=== PATIENT | male | born 1990 | race Caucasian/White ===

== ENCOUNTER 2023-02-22 06:32 | Emergency (ER) | payer OTHER, SELFPAY ==
[2023-02-22 06:43] VITALS: BP 126/84; PULSE 91; RESP 16; TEMP 37; O2SAT 97; BMI 18.4
--- NOTE | 2023-02-22 06:45 | W.ED.DENTAL ---
HPI - Dental/Oral General: Chief complaint: Dental/Oral Stated complaint: left side jaw swollen Time Seen by Provider: 02/22/23 06:41 Source: patient Mode of arrival: ambulatory History of Present Illness: 32-year-old male presents with complaints of swelling to the left mandible that began overnight. Has had problems with dental infections in the past he is scheduled to see a dentist but there is quite a long wait to get in. He states seemed to be fine yesterday and overnight had significant swelling and discomfort. He has been on antibiotics in the past which has improved things. He is not currently on any antibiotics. He is on Suboxone. Denies any difficulty with speech or swallowing or breathing. Onset (ago): hour(s) Duration: constant Severity: moderate Relieving factors: NSAIDs Exacerbating factors: chewing Context: history of dental caries Associated symptoms: Denies ear or mastoid pain, fever(s), gum swelling, odynophagia, sore throat or tongue swelling Treatment prior to arrival: none Review of Systems Const: Denies: fever(s), chills, fatigue or malaise ENMT: Denies: odynophagia or ear or mastoid pain Card: Denies: chest pain, edema, dyspnea on exertion or orthopnea Resp: Denies: dyspnea, productive cough or non-productive cough GI: Denies: abdominal pain, nausea, vomiting, hematemesis, coffee ground emesis, diarrhea, constipation, bloating, hematochezia or melena : Denies: flank pain, dysuria, urinary frequency or urinary urgency Skin/Breast: Denies: rash or pruritus All/Imm: Denies: tongue swelling Physical Exam Const: GENERAL APPEARANCE: cooperative and comfortable ORIENTATION/CONSCIOUSNESS: Yes awake, Yes oriented to person, Yes oriented to place and Yes oriented to time HENMT: COMMON NORMALS: normocephalic, atraumatic and hearing grossly normal bilaterally HEAD & SCALP: normocephalic and atraumatic TEETH & GINGIVA IMAGES: 1. OTHER: 19th tooth is eroded to the gumline with purulent drainage swelling of the gumline palpable swelling externally is exquisitely tender no submandibular space swelling or induration neck is supple without lymphadenopathy Resp: COMMON NORMALS: normal respiratory effort, No retractions, No use of accessory muscles and clear to auscultation bilaterally AUSCULTATION: clear to auscultation bilaterally Cardio: COMMON NORMALS: regular rate, regular rhythm and No murmurs present (Cardio) RATE: regular rate RHYTHM: regular rhythm GI: COMMON NORMALS: Soft to palpation and No hepatosplenomegaly present AUSCULTATION: Yes normoactive bowel sounds PALPATION: Yes Soft to palpation, No Tenderness to palpation present (GI), No Guarding due to palpation present (GI) and Yes No hepatosplenomegaly present Extremity: COMMON NORMALS: normal to inspection, capillary refill normal, no clubbing, cyanosis or edema, no calf tenderness and no pedal edema Neuro: SENSORIUM/ORIENTATION: Yes oriented to person, Yes oriented to place and Yes oriented to time Skin: COMMON NORMALS: no rashes or lesions noted GENERAL SKIN EXAM: no rashes or lesions noted Course Vital Signs: Vital signs: Vital Signs Temperature 98.6 F 02/22/23 06:43 Pulse Rate 91 02/22/23 06:43 Respiratory Rate 16 02/22/23 06:43 Blood Pressure 126/84 02/22/23 06:43 Pulse Oximetry 97 02/22/23 06:43 Oxygen Delivery Me thod Room Air 02/22/23 06:43 MDM - Dental/Oral Medical Decision Making Dental caries with likely developing abscess. At this point tolerating relatively well no identifiable fluctuant area to drain. Discharged on Augmentin 875 twice daily follow-up with dentist as soon as able. Medical Records I reviewed the patient's medical records. Lab Data I reviewed the patient's lab results. Discharge Plan Discharge Patient Disposition: Home Clinical Impression: Dental abscess Condition: Stable Prescriptions: New amoxicillin-pot clavulanate 875-125 mg tablet 1 tab PO BID Qty: 20 0RF diclofenac sodium 75 mg tablet,delayed release (DR/EC) 75 mg PO Q12H PRN (Reason: pain) Qty: 20 0RF Discontinued amoxicillin-pot clavulanate 875-125 mg tablet 1 tab PO BID 7 Days Qty: 14 0RF No Action buprenorphine-naloxone 8-2 mg tablet, sublingual 1 tab sublingual DAILY buprenorphine HCl 8 mg tablet, sublingual SUBLINGUAL Discharge Orders: Discharge ED (Routine); Ordered 02/22/23 Ordered By: Mike Cunha Discharge Diet: Soft Mechanical Discharge Activity: Increase activity as tolerated Patient Instructions: Dental Abscess (ED), Opioid Safety, Pain Management Activity Restrictions/Additional Instructions: You are seen today for dental infection. Start oral antibiotics 1 pill twice daily for 10 days. Follow-up with your dentist as soon as you are able. Coding Level of Care Code ED Oil Winterizer for Jack Tam
== END 2023-02-22 07:08 | disposition home or self-care (01) ==
PROVIDERS: Emergency Provider Family Medicine
DX: K04.7 Periapical abscess without sinus (principal)
CPT/HCPCS: 99283

== ENCOUNTER → 2023-06-09 09:00 | Outpatient (BNVA) | payer OTHER, SELFPAY | PROVIDERS: Referring Provider Dermatology; Visit Provider Physician Assistant | DX: M47.816 Spondylosis without myelopathy or radiculopathy, lumbar region (principal) | CPT/HCPCS: 72110 ==

== ENCOUNTER 2023-06-17 14:21 | Outpatient (CLI) | payer OTHER, SELFPAY ==
--- NOTE | 2023-06-17 14:30 | MR_ITS ---
WS: [id number] MRI LUMBAR SPINE NONCONTRAST TECHNIQUE: Sagittal T1, T2 and STIR imaging. Axial T1 and T2 imaging. CLINICAL INFORMATION: lumbar pain COMPARISON: None. FINDINGS: Mild lumbar curve. No acute compression. Slight anterolisthesis L5 on S1 with spondylolysis. Anteroli sthesis measures approximately 3 mm. L1-L2: Normal. L2-L3: No significant disc bulging. Mild facet arthropathy. Spinal canal and foramen are patent. L3-L4: Mild annular bulging. Mild facet arthropathy. Spinal canal and foramen are patent. L4-L5: Mild annular bulging. Tiny annular fissure. Slight effacement of the ventral thecal sac. Spina l canal and foramen are patent. Moderate facet arthropathy. L5-S1: Grade 1 anterolisthesis with chronic spondylolysis. Mild disc bulging. Slight effacement of ve ntral thecal sac. Mild LEFT foraminal narrowing. Mild facet arthropathy. Visualized pelvic bony structures: Normal. Paravertebral soft tissues: Normal. IMPRESSION: 1. Chronic spondylolysis L5-S1 with grade 1 anterolisthesis measuring 4 mm. 2. Mild annular bulging L4-5 with a tiny annular fissure and slight effacement of the ventral thecal sac. Slight narrowing of the subarticular recess bilaterally. Mild LEFT greater than RIGHT foraminal narrowing. Moderate facet arthropathy at this level. 3. Mild L5-S1 foraminal narrowing. 4. No other suspicious findings.
== END 2023-06-17 14:22 | disposition home or self-care (01) ==
LOC: RAD 14:21
PROVIDERS: Visit Provider Physician Assistant
DX: M54.9 Dorsalgia, unspecified (principal); M47.816 Spondylosis without myelopathy or radiculopathy, lumbar region
CPT/HCPCS: 72148

== ENCOUNTER 2023-09-21 12:04 | Emergency (ER) | payer OTHER, SELFPAY ==
[2023-09-21 12:11] VITALS: BP 126/84; PULSE 69; RESP 16; TEMP 37.2; O2SAT 100
--- NOTE | 2023-09-21 12:15 | ECG_ITS ---
[facility] Test Date: 2023-09-21 Pat Name: Nakul Simmons Department: Room: Gender: Male Visual Merchandiser: : 1990 Requested By: Juanito Degroot Order Number: [id number] Bonnie MD: Kunal Javier M.D. Measurements Intervals [place] Rate: 65 P: 87 ID: [id number] QRS: 47 QRSD: 85 T: 63 QT: 377 QTc: 394 Interpretive Statements SINUS RHYTHM WITH SINUS ARRHYTHMIA POSSIBLE RIGHT VENTRICULAR CONDUCTION DELAY [RSR (QR) IN V1/V2] MINIMAL VOLTAGE CRITERIA FOR LVH, CONSIDER NORMAL VARIANT [MEETS CRITERIA IN ONE OF: R(aVL), S(V1), R(V5), R(V5/V6)+S(V1)] No previous ECG available for comparison Electronically Signed On 09-21-2023 16:15:12 CDT by Kunal Javier M.D. [id number]
--- NOTE | 2023-09-21 12:15 | XRR_ITS ---
PROCEDURE INFORMATION: Exam: XR Chest Exam date and time: 09/21/2023 1:01 PM Age: 32 years old Clinical indication: Angina pectoris; Patient HX: Chest pain intermittent for months worse x2 days. Reports multiple life stressors/anxiety TECHNIQUE: Imaging protocol: Radiologic exam of the chest. Views: 1 view. COMPARISON: No relevant prior studies available. FINDINGS: Lungs: Unremarkable. No consolidation. Pleural spaces: Unremarkable. No pleural effusion. No pneumothorax. Heart/Mediastinum: Unremarkable. No cardiomegaly. Bones/joints: Unremarkable. XR/XR chest 1V portable [id number] IMPRESSION: No acute findings.
[2023-09-21 13:18] LABS: Basophils % 0.5 %; Eosinophils % 0.2 %; Lymphocytes # 0.6 10^3/uL (0.8-4.8); Lymphocytes % 10.8 %; Mean Corpuscular HGB Conc 32.3 g/dL (30-55); Mean Corpuscular Hemoglobin 29.8 pg (27-33); Mean Corpuscular Volume 92.1 fl (82-101); Mean Platelet Volume 12.3 fL (7.4-10.4); Monocytes # 0.5 10^3/uL (0.2-0.9); Monocytes % 8.5 %; Neutrophils # 4.43 10^3/uL (1.8-7.7); Neutrophils % 79.8 %; Nucleated Red Blood Cells % 0 %; Platelet Count 171 10^3/cmm (157-399); Red Blood Count 4.67 10^6/uL (3.85-5.65); Red Cell Distribution Width 12.8 % (12.1-15.1); White Blood Count 5.55 10^3/uL (3.29-11.43)
[2023-09-21 13:44] LABS: Alanine Aminotransferase 13 U/L (0-41); Albumin Level 4.5 g/dL (3.5-5.2); Alkaline Phosphatase 82 U/L (40-130); Anion Gap 16.1 (5-19); Aspartate Amino Transferase 18 U/L (0-40); Blood Urea Nitrogen 13 mg/dL (6-20); Calcium 9.4 mg/dL (8.5-10.5); Carbon Dioxide 25 mmol/L (22-29); Chloride 100 mmol/L (98-107); Creatinine Clr Calc Pharmacy 122.2985; Globulin 3.4 g/dL (1.3-4.6); Glomerular Filtration Rate 129.9 mL/min (90-130); Glucose 94 mg/dL (65-115); Osmolality Calculated 284 mOsm/kg (285-295); Potassium 4.1 mmol/L (3.5-5.1); Sodium 137 mmol/L (136-145); Total Bilirubin 1.2 mg/dL (0.15-1.2); Total Protein 7.9 g/dL (6.6-8.7)
[2023-09-21 13:46] LABS: Troponin(5th) Baseline < 6 ng/L (0-15)
--- NOTE | 2023-09-21 14:04 | ED_ITS ---
HPI - Chest Pain 2 General: Chief Complaint: Chest Pain Stated Complaint: chest pain Time Seen by Provider: 09/21/23 12:19 History of Present Illness: Patient comes to the ER for diagnosis of intermittent episodes of left chest pain sharp stabbing in nature. Patient does get short of breath and sweaty when he gets these. Nothing brings them on or makes them go where there in time. Patient has no cardiac history. Patient said sometimes he pain or numbness and tingling goes down his left arm or goes down his chest wall into his left leg buttock region or symptoms over to the right side. Review of Systems 2 General: Reports: 10 or more systems reviewed and unremarkable except in HPI and below PFSH ED 2 PFSH: Social History Smoking and tobacco/nicotine status: former use of tobacco/nicotine Alcohol intake: never Physical Exam 2 Const: COMMON NORMALS: no acute distress, average body habitus, patient oriented x3, no limitations, healthy appearing, alert and well nourished HENMT: COMMON NORMALS: normocephalic, atraumatic, hearing grossly normal bilaterally, external ears normal, Normal external nose present, moist oral mucous membranes and oropharynx normal HEAD & SCALP: normocephalic and atraumatic NOSE: Normal external nose present EXTERNAL EAR: Yes external ears normal Neck/C-Spine: COMMON NORMALS: no JVD Chest: COMMONS NORMALS: normal inspection of the chest; negative for normal palpation of entire chest wall Resp: COMMON NORMALS: normal respiratory effort, No retractions, No use of accessory muscles and clear to auscultation bilaterally AUSCULTATION: clear to auscultation bilaterally Cardio: COMMON NORMALS: no JVD, regular rate, regular rhythm, S1 normal heart sound present, S2 normal heart sound present, No gallops present (Cardio), No clicks present (Cardio), No murmurs present (Cardio) and No rub (Cardio) R ATE: regular rate RHYTHM: regular rhythm HEART SOUNDS: S1 normal heart sound present and S2 normal heart sound present GI: COMMON NORMALS: Normal to inspection, nondistended, normoactive bowel sounds present, Soft to palpation, non-tender, No hepatosplenomegaly present and no masses PALPATION: Yes Soft to palpation and Yes No hepatosplenomegaly present Neuro: COMMON NORMALS: patient oriented x3 SENSORIUM/ORIENTATION: Yes alert Course 2 Vital Signs: Vital signs: Vital Signs Temperature 98.9 F 09/21/23 16:29 Pulse Rate 69 09/21/23 16:29 Respiratory Rate 16 09/21/23 16:29 Blood Pressure 126/84 09/21/23 16:29 Pulse Oximetry 100 09/21/23 16:29 Oxygen Delivery Me thod Room Air 09/21/23 12:11 MDM - Chest Pain Medical Decision Making Patient is worked up in a standard cardiac fashion with serial EKGs, serial troponins, chest x-ray all which were essentially benign. Patient not having chest pain during his stay here patient will be discharged to follow back up with his primary care doc for further evaluation testing. Differential Diagnosis Unlikely acute massive pulmonary embolism, acute respiratory failure, acute myocardial infarction, cardiac arrest or sudden cardiac Medical Records I reviewed the patient's medical records. Lab Data I reviewed the patient's lab results. 09/21/23 13:10 09/21/23 13:10 Radiology Impressions Chest X-Ray 09/21/23 12:15 IMPRESSION: No acute findings. Laboratory Results WBC 5.55 10^3/uL (3.29-11.43) 09/21/23 13:10 RBC 4.67 10^6/uL (3.85-5.65) 09/21/23 13:10 Hgb 13.90 g/dL (11.27-16.99) 09/21/23 13:10 Hct 43.0 % (37-53) 09/21/23 13:10 MCV 92.1 fl (82-101) 09/21/23 13:10 MCH 29.8 pg (27-33) 09/21/23 13:10 MCHC 32.3 g/dL (30-55) 09/21/23 13:10 RDW 12.8 % (12.1-15.1) 09/21/23 13:10 Plt Count 171 10^3/cmm (157-399) 09/21/23 13:10 MPV 12.3 fL (7.4-10.4) H 09/21/23 13:10 Neut % (Auto) 79.8 % 09/21/23 13:10 Lymph % (Auto) 10.8 % 09/21/23 13:10 [place]cock % (Auto) 8.5 % 09/21/23 13:10 Eos % (Auto) 0.2 % 09/21/23 13:10 Baso % (Auto) 0.5 % 09/21/23 13:10 Neut # (Auto) 4.43 10^3/uL (1.8-7.7) 09/21/23 13:10 Lymph # (Auto) 0.6 10^3/uL (0.8-4.8) L 09/21/23 13:10 Hitchcock # (Auto) 0.5 10^3/uL (0.2-0.9) 09/21/23 13:10 Eos # (Auto) 0.0 10^3/uL (0.0-0.8) 09/21/23 13:10 Baso # (Auto) 0.0 10^3/uL (0.0-0.1) 09/21/23 13:10 Nucleated RBC % (auto) 0 % 09/21/23 13:10 Nucleated RBCs # 0.0 /100WBC 09/21/23 13:10 Sodium 137 mmol/L (136-145) 09/21/23 13:10 Potassium 4.1 mmol/L (3.5-5.1) 09/21/23 13:10 Chloride 100 mmol/L (98-107) 09/21/23 13:10 Carbon Dioxide 25 mmol/L (22-29) 09/21/23 13:10 Anion Gap 16.1 (5-19) 09/21/23 13:10 BUN 13 mg/dL (6-20) 09/21/23 13:10 Creatinine 0.7 mg/dL (0.7-1.2) 09/21/23 13:10 GFR Calculation 129.9 mL/min (90-130) 09/21/23 13:10 Glucose 94 mg/dL (65-115) 09/21/23 13:10 Calculated Osmolality 284 mOsm/kg (285-295) L 09/21/23 13:10 Calcium 9.4 mg/dL (8.5-10.5) 09/21/23 13:10 Total Bilirubin 1.2 mg/dL (0.15-1.2) 09/21/23 13:10 AST 18 U/L (0-40) 09/21/23 13:10 ALT 13 U/L (0-41) 09/21/23 13:10 Alkaline Phosphatase 82 U/L (40-130) 09/21/23 13:10 Troponin T Baseline < 6 ng/L (0-15) 09/21/23 13:10 Troponin T 120 Minute 6.00 ng/L (0-15) 09/21/23 15:27 Delta Troponin T 0.13706 ABS# (0-10) 09/21/23 15:27 Total Protein 7.9 g/dL (6.6-8.7) 09/21/23 13:10 Albumin 4.5 g/dL (3.5-5.2) 09/21/23 13:10 Globulin 3.4 g/dL (1.3-4.6) 09/21/23 13:10 All radiology interpretation(s) finalized by discharge Discharge Plan Discharge Patient Disposition: Home Clinical Impression: Atypical chest pain Condition: Stable Prescriptions: No Action ibuprofen 200 mg capsule 600 mg PO Q6H PRN (Reason: Pain) buprenorphine HCl 8 mg tablet, sublingual 8 mg SUBLINGUAL Q8H PRN (Reason: Anxiety) acetaminophen 325 mg Tablet 650 mg PO QID PRN (Reason: Pain) Discharge Orders: Discharge ED (Routine); Ordered 09/21/23 Ordered By: Juanito Degroot Referrals: Ney Huang MD [Primary Care Provider] - 1 week Patient Instructions: Chest Pain (ED) Activity Restrictions/Additional Instructions: Your evaluation in ER did not show a cardiac cause of your chest pain. It is felt to be atypical or noncardiac in nature. Please follow-up with your family practice physician for further evaluation testing. If your pain worsens or changes please feel free to return to the ER Coding Level of Care Code ED Tank Car Inspector for Jack Tam
--- NOTE | 2023-09-21 14:15 | ECG_ITS ---
[facility] Test Date: 2023-09-21 Pat Name: Nakul Simmons Department: Room: Gender: Male Manager Resource: : 1990 Requested By: Juanito Degroot Order Number: [id number] Bonnie MD: Kunal Javier M.D. Measurements Intervals [place] Rate: 53 P: 67 [place]: 156 QRS: 48 QRSD: 79 T: 57 QT: 397 QTc: 373 Interpretive Statements SINUS BRADYCARDIA WITH SINUS ARRHYTHMIA POSSIBLE RIGHT VENTRICULAR CONDUCTION DELAY [RSR (QR) IN V1/V2] Compared to ECG 09/21/2023 12:08:16 Sinus rhythm no longer present Electronically Signed On 09-21-2023 16:16:47 CDT by Kunal Javier M.D. [id number]
[2023-09-21 15:59] LABS: Troponin 5 2HR Delta 0.00001 ABS# (0-10)
[2023-09-21 16:29] VITALS: BP 126/84; PULSE 69; RESP 16; TEMP 37.2; O2SAT 100
== END 2023-09-21 16:30 | disposition home or self-care (01) ==
PROVIDERS: Emergency Provider Emergency Medicine; PCP Family Medicine
DX: R07.89 Other chest pain (principal); Z87.891 Personal history of nicotine dependence
CPT/HCPCS: 71045; 80053; 84484; 85025; 93005; 99285